=== PATIENT | male | born 1965 | race Caucasian/White ===

== ENCOUNTER → 2021-06-26 | Outpatient (CLI) | payer OTHER ==
--- NOTE | 2021-06-26 14:52 | DIREP ---
PROCEDURE:MRI SPINE LUMBAR W/O COMPARISON:None. INDICATIONS:LOW BACK PAIN TECHNIQUE:A comprehensive examination was performed utilizing a variety of imaging planes and imaging parameters to optimize visualization of suspected pathology. Images were performed without intravenous gadolinium contrast. FINDINGS: ALIGNMENT:Mild levoscoliosis of the lower lumbar spine. 3 mm minimal anterolisthesis L4 on L5. VERTEBRA:No fracture or pars defect. Heterotrophic marrow signal intensity likely not clinically significant. High T1 and T2 areas suggestive of benign hemangiomas in the left sacrum and L1 vertebral body. There is a transitional type S1 vertebra with a rudimentary S1-2 disc.*In this discussion, the last complete disc space is assumed to be the L5-S1 disc level. CORD/CAUDA EQUINA:Normal size, contour, and signal intensity. PARASPINAL AREA:Normal with no visible mass. OTHER:None. LUMBAR DISC LEVELS T12-L1:No significant disc/facet abnormality, spinal stenosis, or foraminal stenosis. L1-L2:No significant disc/facet abnormality, spinal stenosis, or foraminal stenosis. L2-L3:There is a small left foraminal/extraforaminal disc protrusion/herniation. Mild left foraminal stenosis. L3-L4:Mild bilateral posterior disc bulge, mild ligamentous hypertrophy and facet arthropathy. Small, 4 mm, synovial/subarticular cyst in the posterior portion of the right facet joint. Moderate to marked bilateral foraminal stenosis, moderate central canal spinal stenosis. L4-L5:Moderate disc space narrowing, mild posterior disc bulge, minimal grade 1 spondylolisthesis due to degenerative change, ligamentous hypertrophy, marked bilateral facet arthropathy. Posterior disc margin is uncovered by minimal spondylolisthesis, mild posterior disc bulge lateralizes to the left. Marked bilateral foraminal stenosis, marked central canal spinal stenosis. L5-S1:Marked disc space narrowing, mild posterior disc bulge lateralizes more to the left, marked bilateral facet arthropathy. Marked right and moderate left foraminal stenosis, mild central canal spinal stenosis. CONCLUSION: 1. Multilevel degenerative disc and joint changes the lumbar spine with no evidence of acute bony injury. 2. Degenerative changes are greatest at the L3-4 and L4-5 levels. At L3-4 there are findings of mild to marked bilateral foraminal stenosis and moderate acquired central canal spinal stenosis. At L4-5 there are findings of marked bilateral foraminal stenosis and marked acquired central canal spinal stenosis. 3. Please see above discussion for other details of findings. Dictated by: Dawood Pearson M.D. on 06/26/2021 at 02:34 PM
== END | disposition home or self-care (01) ==
LOC: RAD 10:50
PROVIDERS: ATTEND Family Medicine
DX: M47.817 Spondylosis without myelopathy or radiculopathy, lumbosacral region (principal); M51.36 Other intervertebral disc degeneration, lumbar region; M48.061 Spinal stenosis, lumbar region without neurogenic claudication; M51.27 Other intervertebral disc displacement, lumbosacral region
CPT/HCPCS: 72148